=== PATIENT | male | born 1955 | race Caucasian/White ===

== ENCOUNTER 2018-01-02 11:17 | Emergency (ER) | payer OTHER, SELFPAY ==
[2018-01-02 11:19] VITALS: BP 141/73; PULSE 78; RESP 17; TEMP 37.1; O2SAT 97; BMI 19.8
--- NOTE | 2018-01-02 13:15 | ED.VISSUMM ---
- ER Visit Summary Date of Service: 01/02/18 Chief Complaint: Patient presents [congestion, R ear pain] History of Present Illness: The patient is a 62 M [that presents with congestion and right ear pain for the last several weeks. He states he wakes up and feels as though his right ear is full. He has a popping sensation with movement of his jaw and swallowing at times. Patient has a history of a prior stroke and takes Plavix. He was at an urgent care and because of this history was directed to the emergency department. Patient has no focal neurological symptoms on examination. She denies any weakness or paresthesias. He denies any headache. His gait and balance have been normal. He overall appears well and nontoxic. He has no other complaints. He took some Mucinex prior to arrival and states that made his symptoms better.] Physical Examination: [General: The patient appears well and in no apparent distress. Patient is resting comfortably on cart. Skin: Warm, dry, no pallor noted. No rash. Head: Normocephalic, atraumatic Neck: Supple, nontender. Eye: PERRLA, EOMI ENT: Moist mucus membranes, pharynx within normal limits. TMs not infected, effusion behind R TM, normal canals. No mastoid tenderness or erythema. Cardiovascular: Regular Rate and Rhythm, no gallups or rubs Respiratory: Patient is in no distress, no accessory muscle use, lungs are clear to auscultation, no wheezing, rales or rhonchi Musculoskeletal: normal ROM, no deformity, no tenderness, no swelling. 2+ radial and DP pulses symmetric. GI: No tenderness to palpation, no masses appreciated. No rebound, guarding, or rigidity noted. Neurological: A&O, normal strength and sensation. GCS 15. NIH = 0. Psychiatric: Cooperative] Test Results: [CT brain imaging; Focal area of decreased attenuation in the insular cortex of the left temporal lobe.] Emergency Department Course and Treatment: [Patient presents with congestion and right ear fullness and symptoms with swallowing. Urgent care directed the patient to the emergency department because they were concerned about his history of a prior stroke. Patient has normal neurological examination here. He has no paresthesias or weakness on examination. 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 NIH examination overall 0. I did obtain a head CT to evaluate for possible sinus disease and mastoiditis. CT imaging shows no sign of these, only a focal decreased attenuation region in the left cortex. I do not feel this is related to patient's current symptoms or complaints. Patient will be prescribed Claritin for the right ear effusion and he can continue the Mucinex [id number] as he states this did help his symptoms. I advised him to follow closely with his primary provider and return with any new or worsening symptoms. I do not feel his presentation is consistent with stroke or TIA at this time. I did inform the patient of his CT findings for close follow-up with his primary provider. Patient and family understand and are agreeable with this plan of care. Patient discharged home in stable condition.] Treatment Plan: [see above] Disposition: [discharge home, stable condition] Impression: [Right otalgia, effusion] This note was generated with [employer] dictation software. It may contain incorrect words, spelling, and punctuation that were not noted in review of the chart prior to signing ED Disposition - Plan for ED Patient: Disposition: Home or Assisted Living Chief Complaint: Neuro S/Sx Instructions: Common Middle Ear Problems Prescriptions: Loratadine [Claritin] 10 mg PO DAILY #10 tab Referrals: Boone Mullen MD [Primary Care Provider] -
--- NOTE | 2018-01-02 13:23 | ED.DCSUM_ITS ---
- ER Visit Summary Date of Service: 01/02/18 Chief Complaint: Patient presents [congestion, R ear pain] History of Present Illness: The patient is a 62 M [that presents with congestion and right ear pain for the last several weeks. He states he wakes up and feels as though his right ear is full. He has a popping sensation with movement of his jaw and swallowing at times. Patient has a history of a prior stroke and takes Plavix. He was at an urgent care and because of this history was directed to the emergency department. Patient has no focal neurological symptoms on examination. She denies any weakness or paresthesias. He denies any headache. His gait and balance have been normal. He overall appears well and nontoxic. He has no other complaints. He took some Mucinex prior to arrival and states that made his symptoms better.] Physical Examination: [General: The patient appears well and in no apparent distress. Patient is resting comfortably on cart. Skin: Warm, dry, no pallor noted. No rash. Head: Normocephalic, atraumatic Neck: Supple, nontender. Eye: PERRLA, EOMI ENT: Moist mucus membranes, pharynx within normal limits. TMs not infected, effusion behind R TM, normal canals. No mastoid tenderness or erythema. Cardiovascular: Regular Rate and Rhythm, no gallups or rubs Respiratory: Patient is in no distress, no accessory muscle use, lungs are clear to auscultation, no wheezing, rales or rhonchi Musculoskeletal: normal ROM, no deformity, no tenderness, no swelling. 2+ radial and DP pulses symmetric. GI: No tenderness to palpation, no masses appreciated. No rebound, guarding, or rigidity noted. Neurological: A&O, normal strength and sensation. GCS 15. NIH = 0. Psychiatric: Cooperative] Test Results: [CT brain imaging; Focal area of decreased attenuation in the insular cortex of the left temporal lobe.] Emergency Department Course and Treatment: [Patient presents with congestion and right ear fullness and symptoms with swallowing. Urgent care directed the patient to the emergency department because they were concerned about his history of a prior stroke. Patient has normal neurological examination here. He has no paresthesias or weakness on examination. 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 NIH examination overall 0. I did obtain a head CT to evaluate for possible sinus disease and mastoiditis. CT imaging shows no sign of these, only a focal decreased attenuation region in the left cortex. I do not feel this is related to patient's current symptoms or complaints. Patient will be prescribed Claritin for the right ear effusion and he can continue the Mucinex [id number] as he states this did help his symptoms. I advised him to follow closely with his primary provider and return with any new or worsening symptoms. I do not feel his presentation is consistent with stroke or TIA at this time. I did inform the patient of his CT findings for close follow-up with his primary provider. Patient and family understand and are agreeable with this plan of care. Patient discharged home in stable condition.] Treatment Plan: [see above] Disposition: [discharge home, stable condition] Impression: [Right otalgia, effusion] This note was generated with [employer] dictation software. It may contain incorrect words, spelling, and punctuation that were not noted in review of the chart prior to signing ED Disposition - Plan for ED Patient: Disposition: Home or Assisted Living Chief Complaint: Neuro S/Sx Instructions: Common Middle Ear Problems Prescriptions: Loratadine [Claritin] 10 mg PO DAILY #10 tab Referrals: Boone Mullen MD [Primary Care Provider] -
[2018-01-02 13:52] VITALS: BP 110/82; PULSE 75; RESP 17; O2SAT 98
== END 2018-01-02 13:53 | disposition home or self-care (01) ==
PROVIDERS: Emergency Provider Emergency Medicine; Family Provider Internal Medicine; PCP Internal Medicine
DX: H92.01 Otalgia, right ear (principal); Z86.73 Personal history of transient ischemic attack (TIA), and cerebral infarction without residual deficits; Z79.02 Long term (current) use of antithrombotics/antiplatelets; Z79.899 Other long term (current) drug therapy
CPT/HCPCS: 70450; 99282

== ENCOUNTER 2019-01-13 11:54 | Emergency (ER) | payer OTHER, SELFPAY ==
[2019-01-13] VITALS (7 sets, daily range): BP systolic 119–138; BP diastolic 70–97; PULSE 82–100; RESP 16–21; TEMP 36.4; O2SAT 95–100
--- NOTE | 2019-01-13 12:34 | EKG12_ITS ---
Test Reason : CP Blood Pressure : / mmHG Vent. Rate : 096 BPM Atrial Rate : 085 BPM P-R Int : 128 ms QRS Dur : 076 ms QT Int : 348 ms P-R-T Axes : 075 038 070 degrees QTc Int : 439 ms Sinus rhythm with Premature supraventricular complexes and with occasional Premature ventricular comp lexes Otherwise normal ECG Confirmed by ONEIL PALACIOS, SYLVIA ([id number]), development editor ELLE ROBERTSON ([id number]) on 01/15/2019 9:00:13 AM Referred By: JEREMÍAS Confirmed By:SYLVIA RIGGS MD
--- NOTE | 2019-01-13 12:43 | ED.VISSUMM ---
- ER Visit Summary Date of Service: 01/13/19 Chief Complaint: Chest pain History of Present Illness: The patient is a 63 M who presents with chest pain that has been intermittent for the past week. Patient states that his symptoms have been intermittent, lasting up between 5 minutes and up to 1 hour. Patient describes the pain as a pressure and throbbing. Patient states the pain is over the substernal area. Patient states he had some dental extractions approximately 2-3 weeks ago and his symptoms began approximately 3 to 4 days after finishing his antibiotic and mouth rinses after his dental surgery. Patient states he does feel lightheaded at times. Patient states his pain is worse with exertion but also worse with sitting down and bending forward. Patient states the pain improves with standing. Patient states he also took some Tums recently which did help. Patient admits to some diaphoresis at night. Patient admits to some intermittent shortness of breath. Patient also admits to some heartburn type symptoms. Patient has a history of gastric resection due to gastric cancer. Physical Examination: Vital signs are stable. Patient is afebrile. Patient is in no acute distress. Oral mucosa is pink and moist. Neck is supple. Trachea is midline. There is no JVD noted. Heart was regular rate and rhythm. Lungs are clear and equal bilateral. Abdomen is soft. Bowel sounds are normal. There is no tenderness. There is no guarding noted. Skin is warm dry. Cranial nerves II through XII are intact. There are no focal motor or sensory deficits noted. Test Results: EKG showed sinus rhythm with occasional PACs and PVCs. Ventricular rate was 96. There are no acute ST or T wave changes noted. CBC, basic metabolic profile, troponin were obtained and were normal. Chest x-ray does not show any acute cardiopulmonary process. Emergency Department Course and Treatment: Patient was not given aspirin due to his allergy to aspirin. Patient was feeling better on reevaluation. Patient has a HEART score of 3. Patient was advised that this is low risk for acute cardiac event. Patient was instructed to follow-up with his primary care physician in 5 to 7 days. Patient understood and was agreeable with the plan. All questions were answered. Disposition: Discharge home Impression: Chest pain This note was generated with [employer] dictation software. It may contain incorrect words, spelling, and punctuation that were not noted in review of the chart prior to signing ED Disposition - Plan for ED Patient: Disposition: Home or Assisted Living Diagnosis: Chest pain of uncertain etiology Instructions: CHEST PAIN, Uncertain Cause Referrals: Boone Mullen MD [Primary Care Provider] - 3-5 Days
[2019-01-13 12:53] LABS: Absolute Lymphocyte Count 1.18 X10^3/uL (0.83-4.51); Absolute Neutrophil Count 3.8 X10^3/uL (2.0-7.7); Basophil# 0.05 X10^3/uL; Basophil% 0.9 % (0-1); Eosinophil# 0.04 X10^3/uL; Eosinophils% 0.7 % (0-5); Hematocrit 34.9 % (40-54); Hemoglobin 11.1 g/dL (13.0-16.5); Lymphocyte # 1.18 X10^3/ul (4.0); Lymphocyte % 20.4 % (19-41); Mean Corp Hgb Conc 31.8 g/dL (32-36); Mean Corpuscular Hgb 26.4 pg (27.0-32.0); Mean Corpuscular Volume 82.9 fL (80-94); Mean Platelet Vol. 9.4 fl (6.2-12.0); Monocyte# 0.73 X10^3/uL; Monocyte% 12.6 % (0-10); NRBC Flagged by Analyzer 0 % (0-5); Neutrophil # 3.78 X10^3/uL (2.7-7.7); Neutrophil % 65.2 % (47-70); Platelet Count 281 K/mm3 (150-450); RBC Distribution Width CV 17.3 % (11.6-14.6); RBC Distribution Width SD 52.3 fl (35.1-43.9); Red Blood Count 4.21 M/mm3 (4.6-6.2); White Blood Count 5.8 K/mm3 (4.4-11.0)
[2019-01-13 13:08] LABS: Anion Gap 4 (5-15); BUN 16 mg/dL (7-18); Calcium,Total 8.8 mg/dL (8.5-10.1); Chloride 107 mmol/L (98-107); EST Glomerular Filtration Rate 121 mL/min (>60); Est Glom Filt Rate - Afr Amer 147 mL/min (>60); Estimated Creatinine Clearance 80.83 ml/min; Glucose 88 mg/dL (74-106); Potassium 4.1 mmol/L (3.5-5.1); Sodium Level 138 mmol/L (136-145)
--- NOTE | 2019-01-13 13:16 | RAD_ITS ---
STUDY: X-RAY CHEST REASON FOR EXAM: Male, 63 years old. Chest pressure with shortness of breath TECHNIQUE: PA and lateral views of the chest. COMPARISON: None. FINDINGS: Extensive surgical clips in the upper abdomen region. The lungs are clear and expanded. There is no demonstrated pleural abnormality. Normal size heart. Normal mediastinum and surya. Normal visualized pulmonary arteries. Normal visualized aortic arch and descending thoracic aorta. Normal visualized thoracic spine. Normal visualized ribs, clavicles, and shoulders. There is no demonstrated abnormality of the visualized soft tissue structures of the upper abdomen. RAD/Chest PA and Lateral IMPRESSION: Normal x-ray examination of the chest. Electronically Signed: Moris Hanson DO at 14:07 EDT Tel , Service support ,
== END 2019-01-13 15:26 | disposition home or self-care (01) ==
PROVIDERS: Emergency Provider Emergency Medicine; Family Provider Internal Medicine; PCP Internal Medicine
DX: R07.9 Chest pain, unspecified (principal); D64.9 Anemia, unspecified; Z85.028 Personal history of other malignant neoplasm of stomach; Z90.3 Acquired absence of stomach [part of]; Z72.0 Tobacco use; Z86.73 Personal history of transient ischemic attack (TIA), and cerebral infarction without residual deficits; Z79.02 Long term (current) use of antithrombotics/antiplatelets
CPT/HCPCS: 71046; 80048; 84484; 85025; 93005; 99284; A4216

== ENCOUNTER 2023-07-10 11:00 | Emergency (ER) | payer MEDICARE, SELFPAY ==
[2023-07-10 11:02] VITALS: BP 140/80; PULSE 84; RESP 14; TEMP 36.7; O2SAT 95; BMI 19.4
--- NOTE | 2023-07-10 11:21 | CT_ITS ---
STUDY: CT ABDOMEN AND PELVIS WITHOUT CONTRAST REASON FOR EXAM: Male, 67 years old. Flank pain RADIATION DOSAGE (If Supplied By Facility): CTDIvol = ( 6.04 ) mGy, DLP = ( 276.33 ) mGycm TECHNIQUE: Transaxial images were obtained from the dome of the diaphragm to the symphysis pubis without oral contrast, and without intravenous contrast. Sagittal and coronal images were reconstructed. Individualized dose optimization techniques were used for this CT. COMPARISON: None. FINDINGS: The visualized lung bases are unremarkable. The visualized portions of the heart are within normal limits. Normal liver. There are surgical clips in the gallbladder fossa consistent with a prior cholecystectomy. Normal spleen. Normal pancreas. Normal bilateral adrenal glands. Right kidney shows hydronephrosis and hydroureter with a minimal amount of perinephric and periureteral inflammatory stranding. Findings due to a 4.4 mm stone at the right UVJ, seen on axial image 129 and coronal recon image 59. Left kidney free of obstructive uropathy or suspicious solid renal lesion. Evidence of previous gastric bypass surgery. No anastomotic leak noted Normal small intestine. Retained stool noted throughout the colon. The appendix is visualized and appears normal. Findings seen on coronal recon images 37-44 There is diffuse atherosclerotic calcification of the abdominal aorta, without a demonstrated aneurysm. Normal inferior vena cava. Normal retroperitoneum. Normal urinary bladder. Prostate gland is mildly enlarged and contains chunky calcifications suggesting chronic prostatitis. Normal abdominal wall. There are diffuse degenerative changes of the visualized lumbar spine, and pelvis. CT/Abdomen/Pelvis without Cont IMPRESSION: Right-sided hydronephrosis and hydroureter with a minimal amount of perinephric and periureteral inflammatory stranding. Findings due to a 4.4 mm stone at the right UVJ seen on the images described above. Left kidney free of obstructive uropathy Retained stool throughout the colon Normal appendix visualized Degenerative bony changes Electronically Signed: Rosendo Rabago MD at 12:46 EDT ,
--- NOTE | 2023-07-10 11:22 | EX.ED.DYSGE1 ---
HPI History of Present Illness Chief Complaint: Flank Pain Informant: patient and spouse/S.O. Narrative Narrative: 67-year-old male presenting to the emergency room with right-sided abdominal and flank pain of 3-day duration. Symptoms wax and wane. He states that most the time it feels like a ache just above his right pelvic crest. At times it becomes very sharp and he has some nausea with it. Pain radiates towards his inguinal region and at times makes his right testicle hurt. He has a frequent urge to urinate but typically does not need to go. Patient has had prior total gastrectomy secondary to cancer. This was in 1999. He states he had a bowel movement this normal and that was normal. Has had prior cholecystectomy. No fever. No known trauma or injuries. [facility] Medical History CAD (coronary artery disease) MALT lymphoma Home Medications cholecalciferol (vitamin D3) 50 mcg (2,000 unit) capsule (Vitamin D3) 2,000 unit PO DAILY 01/02/18 [History Last Taken Unknown] clopidogrel 75 mg tablet 75 mg PO DAILY 01/02/18 [History Last Taken Unknown] cyanocobalamin (vitamin B-12) 1,000 mcg/mL injection solution 1,000 mcg IM Q30D 01/02/18 [History Last Taken Unknown] dorzolamide 2 % eye drops 1 drp OP BID 01/02/18 [History Last Taken Unknown] loratadine 10 mg tablet 10 mg PO DAILY #10 tabs 01/02/18 [Rx Last Taken Unknown] wmnqffhm-jcn-dgdyk acid 0.4 mg-lycopene 300 mcg-lutein 250 mcg tablet (Centrum Silver) 1 ea PO DAILY 01/02/18 [History Last Taken Unknown] hydrocodone-acetaminophen 5-325mg 5mg-325mg 1 tab PO Q6H PRN PRN Pain 3 days #12 TABLETS 07/10/23 [Rx Last Taken Unknown] Allergy/AdvReac Type Severity Reaction Status Date / Time aspirin Allergy Other Verified 07/10/23 11:01 Uvwcrbk-AJI-VqT Reductase Allergy Other Verified 07/10/23 11:01 Inhibitor [Fyvrady-Izs-Jus Reductase Inhibitor] Iodinated Contrast Media AdvReac Other Verified 07/10/23 11:02 Social History Smoking Status: Current every day smoker tobacco type: cigarettes ROS ROS ED Constitutional Constitutional ED: Denies chills, fever(s) or weight loss Eyes Eyes: Denies change in vision or diplopia ENT ENT ED: Denies ear pain, rhinorrhea or sore throat Cardiovascular Cardiovascular: Denies chest pain, orthopnea, palpitations or racing heartbeat Respiratory/Chest Respiratory/Chest: Denies cough, dyspnea or orthopnea Gastrointestinal Gastrointestinal: Reports abdominal pain and nausea; Denies diarrhea or vomiting Genitourinary Genitourinary ED: Reports other Details: Urged to frequently urinate ; Denies dysuria, hematuria or urinary frequency Musculoskeletal Musculoskeletal: Reports back pain; Denies arthralgias or myalgias Integumentary Denies abscess or rash Neurologic Neurologic: Denies headache(s) or weakness Psychiatric Psychiatric: Denies anxiety, depression, suicidal ideation or suicidal thoughts Endocrine Endocrinology: Denies polydipsia, polyphagia or polyuria Allergic/Immunologic Allergic/Immunologic ED: Denies mouth swelling, tongue swelling or urticaria EXAM Physical Exam Narrative Exam Narrative: Patient appears in no acute distress. Const Vital Signs: 07/10/23 11:02 Temperature 98.1 F Temperature Source Temporal Pulse Rate 84 Respiratory Rate 14 Blood Pressure 140/80 H Blood Pressure Mean 100 Pulse Ox 95 Oxygen Delivery Method Room Air Positive well nourished and well developed General Appearance ED: well developed HEENT Reports normocephalic, head/scalp atraumatic and moist mucous membranes Eyes PERRL and EOMs intact bilaterally Neck no lymphadenopathy, supple and no JVD Resp normal respiratory effort and clear to auscultation bilaterally Cardio regular rate, regular rhythm and no murmurs GI GI Narrative: Patient was diffuse right-sided tenderness to palpation. Tenderness over the iliac crest region and right CVA region. Inspection: Negative for abdominal distention Auscultation: normoactive bowel sounds Palpation: soft, tender RLQ and RUQ and guarding; Negative for rebound tenderness present Back/Spine no CVA tenderness and normal ROM Extremity normal to inspection General Extremety ED: Negative for edema General Extremity: Negative for edema Neuro oriented x3 and CN's II-XII intact bilaterally Sensorium / Orientation: alert Motor Exam: strength 5/5 throughout Psych mental status grossly normal Mood & Affect: Negative for depressed or tearful Skin no rashes or lesions noted and no wounds MDM MDM MDM Narrative Medical decision making narrative: Broad-based differential including but not limited to kidney stone appendicitis obstruction acute hepatitis abdominal wall injury cancer. Basic blood work showed a white count of 6.7 hemoglobin 12.9 platelet count of 283. Creatinine 0.72. Urinalysis shows no overt infection or gross hematuria. CT of the abdomen pelvis demonstrates a kidney stone in the bladder with possibly small amount of blood. There is some hydronephroureter noted. I suspect the patient will be able to fully pass this. Patient received some pain medication in the form of Dilaudid and ketorolac in addition to Zofran for nausea. He is resting comfortably. I can write for some pain medication for home use if needed. Follow-up with urology as needed return if worsening or concerns. History & Record Review Discussion w/independent historian: Patient and Significant other Lab Data Attestation: I reviewed the patient's lab results. Labs: Laboratory Results - last 24 hr 07/10/23 07/10/23 11:10 11:25 WBC 6.7 RBC 4.16 L Hgb 12.9 L Hct 38.4 L MCV 92.3 MCH 31.0 MCHC 33.6 RDW Std Deviation 46.0 H RDW Coeff of Anny 13.5 Plt Count 283 MPV 10.0 Immature Gran % (Auto) 0.100 Neut % (Auto) 69.4 Lymph % (Auto) 16.2 L [place] % (Auto) 13.2 H Eos % (Auto) 0.4 Baso % (Auto) 0.7 Absolute Neuts (auto) 4.7 Absolute Lymphs (auto) 1.09 Nucleated RBC % 0 Sodium 138 Potassium 4.2 Chloride 103 Carbon Dioxide 29.0 Anion Gap 6 BUN 8 Creatinine 0.72 Estim Creat Clear Calc 66.13 Est GFR (MDRD) Af Amer 140 Est GFR (MDRD) Non-Af 116 BUN/Creatinine Ratio 11.1 Glucose 95 Calcium 9.2 Urine Color Yellow Urine Clarity Clear Urine pH 6.0 Ur Specific [place] 1.010 Urine Protein Negative Urine Glucose (UA) Normal Urine Ketones Negative Urine Occult Blood 150 H Urine Nitrite Negative Urine Bilirubin Negative Urine Urobilinogen Normal Ur Leukocyte Esterase Negative Urine RBC 0 SEEN Urine WBC 0 SEEN Ur Squamous Epith Cells 0-5 SEEN Urine Bacteria 0 SEEN Urine Mucus 0 SEEN Radiography Diagnostic Testing: Clinical Impression(s) from Imaging Studies Abdomen/Pelvis CT 07/10/23 11:21 IMPRESSION: Right-sided hydronephrosis and hydroureter with a minimal amount of perinephric and periureteral inflammatory stranding. Findings due to a 4.4 mm stone at the right UVJ seen on the images described above. Left kidney free of obstructive uropathy Retained stool throughout the colon Normal appendix visualized Degenerative bony changes Electronically Signed: Rosendo Rabago MD at 12:46 EDT , Discharge Plan Triage Chief Complaint: Flank Pain ED Provider: Jerome Jerome Dx/Rx/DC Orders Clinical Impression: Renal colic on right side, Calculus of right ureter Instructions: ED Kidney Stone with Pain Prescriptions: New hydrocodone-acetaminophen [hydrocodone-acetaminophen] 5-325 mg tablet 1 tab PO Q6H PRN PRN (Reason: Pain) 3 Days Qty: 12 0RF No Action clopidogrel 75 MG tablet 75 mg PO DAILY Patient Comments: cyanocobalamin (vitamin B-12) 1,000 MCG/ML solution 1,000 mcg IM Q30D dorzolamide 2 % drops 1 drp OP BID Patient Comments: [id number]-[id number]-XW-lycopen-lutein [Centrum Silver] 1 EACH tablet 1 ea PO DAILY cholecalciferol (vitamin D3) [Vitamin D3] 2,000 UNIT capsule 2,000 unit PO DAILY loratadine 10 MG tablet 10 mg PO DAILY Qty: 10 0RF Primary Care Provider: Boone Mullen Referrals: Sj Curtis MD [Med Staff - Active Staff] - As Needed (for urology if continued pain from kidney stone) Boone Mullen MD [Primary Care Provider] - As Needed Disposition Disposition: Home, Self Care
[2023-07-10 11:31] LABS: Bacteria 0 SEEN /hpf (None Seen); Mucous, Urine 0 SEEN /hpf (<or=2+); Red Blood Cells-Urine 0 SEEN /hpf (0-5); White Blood Cells 0 SEEN /hpf (0-5)
[2023-07-10 11:34] LABS: Color, Urine Yellow (Yellow); Glucose, Dipstick Normal (Normal); Ketone-Dipstick Negative (Negative); Leukocyte Esterase-Dipstick Negative /ul (Negative); Nitrite-Dipstick Negative (Negative); Occult Blood-Urine 150 /ul (Negative); Protein-Dipstick Negative (Negative); Urine Bilirubin Dipstick Negative (Negative); Urine Clarity Clear (Clear); Urine Urobilinogen Normal (Normal)
[2023-07-10] MEDS: Ondansetron 4 MG/2 ML Vial IV (11:35)
[2023-07-10] MEDS: Ketorolac 15 MG/ML Vial IV (11:36)
[2023-07-10] MEDS: Morphine 4 MG/ML Syringe IV (11:37)
[2023-07-10 11:38] LABS: Absolute Lymphocyte Count 1.09 X10^3/uL (0.83-4.51); Absolute Neutrophil Count 4.7 X10^3/uL (2.0-7.7); Basophil# 0.05 X10^3/uL; Basophil% 0.7 % (0-1); Eosinophil# 0.03 X10^3/uL; Eosinophils% 0.4 % (0-5); Hematocrit 38.4 % (40-54); Hemoglobin 12.9 g/dL (13.0-16.5); Lymphocyte # 1.09 X10^3/ul (0.83-4.51); Lymphocyte % 16.2 % (19-41); Mean Corp Hgb Conc 33.6 g/dL (32-36); Mean Corpuscular Volume 92.3 fL (80-94); Monocyte# 0.89 X10^3/uL; Monocyte% 13.2 % (0-10); NRBC Flagged by Analyzer 0 % (0-5); Neutrophil # 4.65 X10^3/uL (2.7-7.7); Neutrophil % 69.4 % (47-70); Platelet Count 283 K/mm3 (150-450); RBC Distribution Width CV 13.5 % (11.6-14.6); Red Blood Count 4.16 M/mm3 (4.6-6.2); White Blood Count 6.7 K/mm3 (4.4-11.0)
[2023-07-10 11:47] LABS: Anion Gap 6 (5-15); BUN 8 mg/dL (7-18); BUN/Creat Ratio 11.1 RATIO (10-20); Calcium,Total 9.2 mg/dL (8.5-10.1); Chloride 103 mmol/L (98-107); Creatinine, Serum 0.72 mg/dL (0.70-1.30); EST Glomerular Filtration Rate 116 mL/min (>60); Est Glom Filt Rate - Afr Amer 140 mL/min (>60); Estimated Creatinine Clearance 66.13 ml/min; Glucose 95 mg/dL (74-106); Potassium 4.2 mmol/L (3.5-5.1); Sodium Level 138 mmol/L (136-145)
[2023-07-10 11:53] LABS: Squamous Epithelial Cells - UA 0-5 SEEN /hpf (0-5)
[2023-07-10 13:00] VITALS: BP 124/71; PULSE 73; RESP 14; TEMP 36.3; O2SAT 97
== END 2023-07-10 13:05 | disposition home or self-care (01) ==
PROVIDERS: Emergency Provider Emergency Medicine; PCP Internal Medicine; Visit Provider Emergency Medicine
DX: N13.2 Hydronephrosis with renal and ureteral calculous obstruction (principal); N23 Unspecified renal colic; F17.210 Nicotine dependence, cigarettes, uncomplicated; I25.10 Atherosclerotic heart disease of native coronary artery without angina pectoris; Z79.02 Long term (current) use of antithrombotics/antiplatelets
CPT/HCPCS: 74176; 80048; 81001; 85025; 96374; 96375; 99283; A4216; J2405